=== PATIENT | female | born 1950 | race Caucasian/White ===

== ENCOUNTER 2018-08-13 17:21 | Inpatient (IN) | payer MEDICARE, OTHER ==
[2018-08-13] MEDS ORDERED: Ibuprofen 800 MG TAB ONE (17:46)
[2018-08-13 17:50] LABS: Hemoglobin 13.2 g/dL (12.0-16.0); Mean Corpuscular HGB CONC 31.4 g/dL (32.0-36.0); Mean Corpuscular Hemoglobin 30.1 pg (27.0-31.0); Mean Corpuscular Volume 95.8 fL (78.0-98.0); Mean Platelet Volume 7.7 fL (7.4-10.4); Platelet Count 267 thou/uL (130-400); Red Blood Cell (RBC) Count 4.37 mill/uL (4.20-5.40)
[2018-08-13 18:08] LABS: ALT (SGPT) 22 U/L (8-55); AST (SGOT) 22 U/L (5-34); Albumin 3.9 g/dL (3.4-4.8); Alkaline Phosphatase 88 U/L (40-150); Anion Gap 13 mmol/L (10-20); BUN (Urea Nitrogen) 17 mg/dL (9.8-20.1); Bilirubin, Total 0.8 mg/dL (0.2-1.2); Calc. Creatinine Clearance 0 mL/min (70-130); Calcium 8.7 mg/dL (7.8-10.44); Carbon Dioxide 31 mmol/L (23-31); Chloride 98 mmol/L (98-107); Estimated GFR-MDRD 38; Globulin 2.4 g/dL (2.4-3.5); Glucose 124 mg/dL (80-115); Potassium 3.8 mmol/L (3.5-5.1); Protein, Total 6.3 g/dL (6.0-8.3); Sodium 138 mmol/L (136-145)
[2018-08-13 18:09] LABS: Band 5 % (5-11); Lymphocytes 47 % (21-51); MDiff Complete? YES; Monocytes 10 % (0-10); Neutrophil 32 % (42-75); PLT Morphology Comment Appears Adequate; Reactive Lymphocytes 6 % (0-10)
[2018-08-13 18:16] LABS: Bilirubin Negative (Negative); Blood, Urine Negative (Negative); Clarity CLEAR (Clear); Glucose, Urine (Dipstick) Negative (Negative); Leukocyte Negative (Negative); Nitrite Negative (Negative); Protein, Urine (Dipstick) Negative (Neg-Trace); Specific Gravity, Urine 1.009 (1.002-1.036); pH, Urine 6.5 (5.0-9.0)
--- NOTE | 2018-08-13 18:36 | RAD ---
PORTABLE CHEST: 08/13/2018 PROVIDED CLINICAL HISTORY: Dyspnea. COMPARISON: None. FINDINGS: The cardiac silhouette is within normal limits. The left heart border is poorly defined. The right lung appears clear. No evidence for pneumothorax. IMPRESSION: Poor definition to the lateral left heart margin, which could reflect lingula infiltrate. Prominence of the epicardial fat pad could also produce this appearance. Consider correlation with a lateral v iew. POS: ALEJANDRA
[2018-08-13] MEDS ORDERED: Oseltamivir 75 MG CAP PO SCH (19:15)
[2018-08-13] MEDS ORDERED: Ondansetron PF 4 MG/2 ML Vial IVP PRN (20:25)
[2018-08-13] MEDS ORDERED: Acetaminophen 325 MG TAB PO PRN (20:25)
[2018-08-13] MEDS ORDERED: Ondansetron ODT 4 MG TAB SL PRN (20:25)
[2018-08-13 22:16] LABS: Lactic Acid 2.3 mmol/L (0.5-2.2)
[2018-08-13 23:06] VITALS: BMI 37.7
[2018-08-13] MEDS: Vancomycin HCl 1 GM in Premix Bag 1 BAG IVPB SCH (23:53)
[2018-08-13] MEDS: Sodium Chloride 0.9% 1,000 ML IV SCH (23:54)
--- NOTE | 2018-08-14 04:04 | HP ---
CHIEF COMPLAINT: Shortness of breath. HISTORY OF PRESENT ILLNESS: This patient is a 68-year-old female with a history of chronic lymphocytic leukemia and chronic renal insufficiency, who presented to the emergency department today complaining of a couple of days of dyspnea. She reports this occurred over the last 2 days. She simply felt tightness in her chest. She also spiked some fever today. She has had a cough, which has been productive of discolored dark yellowish type of sputum. She reports a history of COPD with chronic bronchitis. This is somewhat only feels worse. She is home O2 dependent. She has had no chest pains per se. She denies any palpitations. PAST MEDICAL HISTORY: Notable for CLL. She has chronic kidney disease. Her baseline is not known. She also has COPD, which is oxygen dependent on 2-3 L nasal cannula. PAST SURGICAL HISTORY: History of tonsillectomy, adenoidectomy, shoulder surgery, splenectomy, and abdominal mesh. SOCIAL HISTORY: The patient continues to smoke a pack of cigarettes per day. She is a nondrinker, nondrug user. She is . She is full code. Her daughter is her surrogate decision maker. ALLERGIES: KEFLEX, PENICILLIN, AND BUSPIRONE. CURRENT MEDICATIONS: The patient does not have a list to know them off hand. I am working to obtain a full list. PHYSICAL EXAMINATION: VITAL SIGNS: BP 138/91, pulse 82, respirations 21, temperature 99.1. On arrival, the patient's heart rate was 122 and respirations were 46. Her T-max was 102, measured today. GENERAL APPEARANCE: Age-appropriate female. She is in no acute distress. She is requiring BiPAP supplementation presently for tachypnea and dyspnea. She is awake and conversant. Pupils are slightly constricted, but reactive. NECK: Supple and symmetric. HEART: Regular without murmurs. LUNGS: Diminished throughout without significant wheezes or rales. ABDOMEN: Soft, nontender, and nondistended. Positive bowel sounds. EXTREMITIES: Warm and dry. No cyanosis, clubbing, or edema. NEUROLOGIC: The patient moves all extremities spontaneously. Cranial nerves appear intact. There are no gross deficits. PSYCHIATRIC: The patient has normal affect and behavior. LABORATORY DATA: White count 26,000 (patient believes her baseline is somewhere around 11,000), hemoglobin 13.2, platelets 267, 32 neutrophils, 5 bands, 47 lymphocytes, 6 reactive lymphocytes. Sodium 138, potassium 3.8, chloride 98, CO2 is 31, BUN 17, creatinine 1.36, glucose 124. Lactic acid initially 2.5, subsequent 2.3. AST is 22, ALT is 22, alkaline phosphatase 88. Troponin less than 0.01. BNP is 26.1. Urinalysis negative. Influenza A positive, B negative. Chest x-ray shows possible infiltrate at the left lateral margin concerning for lingular infiltrate. IMPRESSION AND PLAN: 1. Sepsis possibly viral sepsis due to influenza versus bacterial pneumonia in a patient, who has a history of splenectomy and chronic lymphocytic leukemia. The patient will be treated aggressively with vancomycin and Levaquin, and fluid hydration as tolerated. 2. Acute hypoxic respiratory failure requiring BiPAP. The patient is admitted to ICU. Get Pulmonary consult as well. Give nebulizer treatments as needed. 3. Pneumonia. The patient is certainly at risk. She has a high white count concerning for bacterial infection. Even though she is flu positive, her chest x-ray is equivocal. We will continue to cover with vancomycin and Levaquin until this can be further elucidated. 4. Chronic lymphocytic leukemia, stable. The patient is not on current treatment. 5. Chronic obstructive pulmonary disease. We will avoid steroids for now. Continue with nebulizer treatments and supplemental oxygen support as needed. 6. Chronic kidney disease, appears to be stage 3. We do not have any prior labs to confirm that the patient know she has some chronic kidney disease and this likely represents her baseline. 7. Influenza A. Tamiflu, pulmonary support. Job ID: [id number] [facility]
[2018-08-14 04:39] LABS: #Basophils 0.1 thou/uL (0.0-0.2); #Eosinphils 0.1 thou/uL (0.0-0.7); #Lymphocytes 1.9 thou/uL (1.20-3.40); #Monocytes 0.2 thou/uL (0.11-0.59); %Basophils 0.4 % (0.0-1.0); %Eosinophils 0.4 % (0.0-10.0); %Lymphocytes 13.4 % (21.0-51.0); %Monocytes 1.2 % (0.0-10.0); %Neutrophils 84.7 % (42.0-75.0); Hemoglobin 13.1 g/dL (12.0-16.0); Mean Corpuscular HGB CONC 32.3 g/dL (32.0-36.0); Mean Corpuscular Hemoglobin 31.2 pg (27.0-31.0); Mean Corpuscular Volume 96.5 fL (78.0-98.0); Mean Platelet Volume 7.8 fL (7.4-10.4); Platelet Count 245 thou/uL (130-400); Red Blood Cell (RBC) Count 4.21 mill/uL (4.20-5.40); White Blood Cell (WBC) Count 14.2 thou/uL (4.8-10.8)
[2018-08-14 04:55] LABS: Anion Gap 14 mmol/L (10-20); BUN (Urea Nitrogen) 17 mg/dL (9.8-20.1); Calc. Creatinine Clearance 60 mL/min (70-130); Calcium 8.9 mg/dL (7.8-10.44); Carbon Dioxide 30 mmol/L (23-31); Chloride 99 mmol/L (98-107); Estimated GFR-MDRD 40; Glucose 214 mg/dL (80-115); Potassium 4.1 mmol/L (3.5-5.1); Sodium 139 mmol/L (136-145)
[2018-08-14] MEDS: Heparin 5,000 UNITS/ML VIAL SC SCH ×3 (10:51→22:06)
[2018-08-14] MEDS: Oseltamivir 6 MG/ML ORAL SUSP PO SCH ×2 (10:51→22:08)
[2018-08-14] MEDS: Acetaminophen 500 MG TAB PO PRN ×2 (11:33→17:38)
--- NOTE | 2018-08-14 15:36 | CON ---
DATE OF CONSULTATION: 08/14/2018 A 50 minutes of the time, of that time, greater than 50% was spent with the patient and/or the patient's unit in the hospital. REASON FOR CONSULTATION: COPD exacerbation. HISTORY OF PRESENT ILLNESS: The patient is a pleasant 68-year-old female, who was admitted to the Hospitalist Service yesterday with increasing shortness of breath of 3 to 4 days duration. She has influenza A. She had spiked a fever up to 104. She was placed on BiPAP. She is cared for by coremaking machine operator [facility] in [place]. She wears oxygen of 2 to 3 L 24 hours daily as needed she also uses Incruse Ellipta, Symbicort, and DuoNeb as needed. She has had numerous hospital stays in the past, but related to chronic obstructive pulmonary disease. PAST MEDICAL HISTORY: 1. Chronic lymphocytic leukemia. 2. Chronic obstructive pulmonary disease. 3. Chronic kidney disease. 4. Gastroesophageal reflux. 5. Hypertension. 6. Depression. PAST SURGICAL HISTORY: 1. Tonsillectomy with adenoidectomy. 2. Shoulder surgery. 3. Splenectomy. 4. Abdominal mesh placement. SOCIAL HISTORY: The patient has not smoked since 2012. She smoked heavily before that. Does not consume alcohol. Does not use illicit drugs. ALLERGIES: KEFLEX, PENICILLIN, AND BUSPIRONE. OUTPATIENT MEDICATIONS: In addition to what is listed above. She was taking; 1. Omeprazole 20 mg daily. 2. Gabapentin 600 mg b.i.d. 3. Diltiazem extended release 120 mg b.i.d. 4. Citalopram 40 mg daily. REVIEW OF SYSTEMS: A 12-point review of systems is otherwise negative. PHYSICAL EXAMINATION: VITAL SIGNS: Temperature 97.4, pulse 73, respirations 23, O2 saturation 96% on BiPAP, and blood pressure 149/79. GENERAL: She is awake and alert. She is in respiratory distress. She is using BiPAP to overcome that. HEENT: Pupils react. Sclerae icteric. Oropharynx clear. NECK: Without adenopathy or JVD. LUNGS: She has prolonged expiratory phase with tight wheezing. CARDIAC: S1 and S2. Regular. ABDOMEN: Soft and nontender. EXTREMITIES: No edema. LABORATORY DATA: White blood cell count 14.2, hematocrit 40, and platelet count 245. Sodium 139, potassium 4.1, chloride 99, CO2 of 30, BUN 17, creatinine 1.3, and glucose 214. Flu screen was positive for type A flu. The chest x-ray showed no evidence of mass, effusion, or infiltrate. She has hyperinflation. ASSESSMENT: Chronic obstructive pulmonary disease with exacerbation. The primary trigger is influenza A. RECOMMENDATION: Continue as you are treating with antibiotics, Tamiflu, and nebulization treatments. Additionally, I would add IV steroids. BiPAP as needed. Job ID: [id number]
--- NOTE | 2018-08-14 15:38 | PDOC.PN ---
- Subjective Encounter Start Date: 08/14/18 Encounter Start Time: 13:00 Subjective: is on bipap -: no chest pain - Objective Resuscitation Status - Order Detail: 08/13/18 22:46 Resuscitation Status Routine Resuscitation Status: FULL: Full Resuscitation MAR Reviewed: Yes Vital Signs & Weight: Vital Signs (12 hours) Temp Pulse Resp BP Pulse Ox 08/14/18 12:00 98.7 F 74 24 H 146/72 H 99 08/14/18 10:47 23 H 96 08/14/18 10:39 73 23 H 96 08/14/18 07:43 23 H 97 08/14/18 07:41 83 28 H 97 08/14/18 07:28 97.4 F L 70 24 H 149/79 H 98 08/14/18 04:00 97.5 F L 80 26 H 118/61 97 Weight Weight 210 lb 3 oz I&O: 08/13/18 08/14/18 08/15/18 06:59 06:59 06:59 Intake Total 1195 Output Total 925 Balance 270 Result Diagrams: 08/14/18 04:27 08/14/18 04:27 Phys Exam - Physical Examination HEENT: PERRLA, moist MMs Neck: no JVD, supple Respiratory: no wheezing, no rales Cardiovascular: RRR, no significant murmur Gastrointestinal: soft, non-tender, positive bowel sounds Musculoskeletal: no edema, pulses present Neurological: non-focal, moves all 4 limbs Psychiatric: A&O x 3 Dx/Plan (1) Acute respiratory failure with hypoxia Code(s): J96.01 - ACUTE RESPIRATORY FAILURE WITH HYPOXIA Status: Acute (2) Influenza A Code(s): J10.1 - FLU DUE TO OTH IDENT INFLUENZA VIRUS W OTH RESP MANIFEST Status: Acute (3) Sepsis Code(s): A41.9 - SEPSIS, UNSPECIFIED ORGANISM Status: Acute Qualifiers: Sepsis type: sepsis due to unspecified organism Qualified Code(s): A41.9 - Sepsis, unspecified organism (4) PNA (pneumonia) Code(s): J18.9 - PNEUMONIA, UNSPECIFIED ORGANISM Status: Acute Qualifiers: Pneumonia type: due to unspecified organism (5) H/O chronic lymphocytic leukemia Code(s): Z85.6 - PERSONAL HISTORY OF LEUKEMIA Status: Chronic (6) CKD (chronic kidney disease) stage 3, GFR 30-59 ml/min Code(s): N18.3 - CHRONIC KIDNEY DISEASE, STAGE 3 (MODERATE) Status: Chronic - Plan is on tamiflu along with vanc and levaquin -: gentle iv hydration -: she feels comfortable on bipap now -: nebs, wbc down to 14 from 26k (her chronic level of CLL) -: mobilize as tolerated * . Review of Systems - Medications/Allergies Allergies/Adverse Reactions: Allergies Allergy/AdvReac Type Severity Reaction Status Date / Time buspirone [From BuSpar] Allergy Verified 08/13/18 22:58 cephalexin [From Keflex] Allergy Verified 08/13/18 22:58 NSAIDS (Non-Steroidal Allergy Verified 08/13/18 22:58 Anti-Inflamma Penicillins Allergy Verified 08/13/18 22:58 Medications: Current Medications Acetaminophen (Tylenol) 1,000 mg PO Q6H PRN PRN Reason: Fever>101/(Mi/Mod/Sev) Pain Last Admin: 08/14/18 11:33 Dose: 1,000 mg Albuterol/Ipratropium (Duoneb) 3 ml NEB [id number] [facility] Last Admin: 08/14/18 10:39 Dose: 3 ml Heparin Sodium (Porcine) (Heparin) 5,000 units SC TID [facility] Last Admin: 08/14/18 10:51 Dose: 5,000 units Levofloxacin 250 mg/ Device 50 mls @ 100 mls/hr IVPB Q24HR [facility] Vancomycin HCl 1 gm/ Device 200 mls @ 200 mls/hr IVPB 2359 [facility] Last Admin: 08/13/18 23:53 Dose: 200 mls Sodium Chloride (Normal Saline 0.9%) 1,000 mls @ 75 mls/hr IV .[id number] [facility] Last Admin: 08/13/18 23:54 Dose: Not Given Methylprednisolone Sodium Succinate (Solu-Medrol) 20 mg IVP Q6HR [facility] Last Admin: 08/14/18 11:33 Dose: 20 mg Oseltamivir Phosphate (Tamiflu) 30 mg PO BID [facility] Stop: 08/18/18 21:01 Last Admin: 08/14/18 10:51 Dose: 30 mg
[2018-08-14] MEDS: Sodium Chloride 0.9% 1,000 ML IV SCH ×2 (20:51→22:19)
[2018-08-15] MEDS: Vancomycin HCl 1 GM in Premix Bag 1 BAG IVPB SCH ×2 (00:11→22:58)
[2018-08-15 08:45] LABS: #Monocytes 0.9 thou/uL (0.11-0.59); #Neutrophils 12.4 thou/uL (1.40-6.50); %Basophils 0.2 % (0.0-1.0); %Eosinophils 0.2 % (0.0-10.0); %Neutrophils 80.6 % (42.0-75.0); Hemoglobin 12.8 g/dL (12.0-16.0); Mean Corpuscular HGB CONC 31.7 g/dL (32.0-36.0); Mean Corpuscular Hemoglobin 30.7 pg (27.0-31.0); Mean Corpuscular Volume 96.8 fL (78.0-98.0); Platelet Count 243 thou/uL (130-400); RBC Distribution Width 13.2 % (11.5-14.5); Red Blood Cell (RBC) Count 4.17 mill/uL (4.20-5.40); White Blood Cell (WBC) Count 15.3 thou/uL (4.8-10.8)
[2018-08-15 09:06] LABS: Anion Gap 17 mmol/L (10-20); BUN (Urea Nitrogen) 19 mg/dL (9.8-20.1); Calc. Creatinine Clearance 80 mL/min (70-130); Calcium 8.9 mg/dL (7.8-10.44); Carbon Dioxide 23 mmol/L (23-31); Chloride 102 mmol/L (98-107); Estimated GFR-MDRD 56; Glucose 145 mg/dL (80-115); Potassium 3.7 mmol/L (3.5-5.1); Sodium 138 mmol/L (136-145)
[2018-08-15] MEDS: Heparin 5,000 UNITS/ML VIAL SC SCH ×3 (09:20→20:04)
[2018-08-15] MEDS: Oseltamivir 6 MG/ML ORAL SUSP PO SCH ×2 (09:21→20:05)
--- NOTE | 2018-08-15 09:44 | PRG ---
DATE OF SERVICE: 08/15/2018 SUBJECTIVE: The patient is feeling better. She wants to try herself off the BiPAP today. OBJECTIVE: VITAL SIGNS: Temperature is 97.5, pulse 67, respirations 21, O2 saturation 95%, and blood pressure 158/95. HEENT: Unremarkable. NECK: No JVD. LUNGS: Some expiratory wheezing. CARDIAC: S1 and S2, regular. ABDOMEN: Soft. EXTREMITIES: No edema. LABORATORY DATA: White blood cell count 15.3, hematocrit 40, and platelet count 243. Sodium 138, potassium 3.7, chloride 102, CO2 of 23, BUN 19, creatinine 0.9 glucose 145. ASSESSMENT: 1. Chronic obstructive pulmonary disease with exacerbation. 2. Acute hypoxic and hypercapnic respiratory failure requiring mechanical ventilation. 3. Type A influenza. PLAN: Continue steroids, nebs, and Tamiflu. Try off BiPAP as tolerated. If she can stay off BiPAP this afternoon, then can transfer to the medical floor. Job ID: [id number]
--- NOTE | 2018-08-15 12:30 | PDOC.PN ---
- Subjective Encounter Start Date: 08/15/18 Encounter Start Time: 07:30 Subjective: on bipap, feels better -: is eating better now - Objective Resuscitation Status - Order Detail: 08/13/18 22:46 Resuscitation Status Routine Resuscitation Status: FULL: Full Resuscitation MAR Reviewed: Yes Vital Signs & Weight: Vital Signs (12 hours) Temp Pulse Resp BP Pulse Ox 08/15/18 11:08 95 08/15/18 11:04 78 18 97 08/15/18 08:00 97.5 F L 67 21 H 158/95 H 95 08/15/18 06:28 25 H 08/15/18 06:27 89 18 97 08/15/18 04:00 97.5 F L 64 20 150/83 H 96 08/15/18 02:22 20 96 08/15/18 02:21 66 20 96 Weight Weight 209 lb 8 oz I&O: 08/14/18 08/15/18 08/16/18 06:59 06:59 06:59 Intake Total 1195 2930 Output Total 925 525 Balance 270 2405 Result Diagrams: 08/15/18 08:26 08/15/18 08:26 Phys Exam - Physical Examination HEENT: PERRLA, moist MMs Neck: no JVD, supple Respiratory: no wheezing, no rales Cardiovascular: RRR, no significant murmur Gastrointestinal: soft, non-tender, positive bowel sounds Musculoskeletal: no edema, pulses present Neurological: non-focal, moves all 4 limbs Psychiatric: normal affect, A&O x 3 Dx/Plan (1) Acute respiratory failure with hypoxia Code(s): J96.01 - ACUTE RESPIRATORY FAILURE WITH HYPOXIA Status: Acute (2) Influenza A Code(s): J10.1 - FLU DUE TO OTH IDENT INFLUENZA VIRUS W OTH RESP MANIFEST Status: Acute (3) Sepsis Code(s): A41.9 - SEPSIS, UNSPECIFIED ORGANISM Status: Acute Qualifiers: Sepsis type: sepsis due to unspecified organism Qualified Code(s): A41.9 - Sepsis, unspecified organism (4) PNA (pneumonia) Code(s): J18.9 - PNEUMONIA, UNSPECIFIED ORGANISM Status: Acute Qualifiers: Pneumonia type: due to unspecified organism (5) H/O chronic lymphocytic leukemia Code(s): Z85.6 - PERSONAL HISTORY OF LEUKEMIA Status: Chronic (6) CKD (chronic kidney disease) stage 3, GFR 30-59 ml/min Code(s): N18.3 - CHRONIC KIDNEY DISEASE, STAGE 3 (MODERATE) Status: Chronic - Plan is on vanc, levaquin, tamiflu, nebs -: steroids -: wean and dc bipap if she tolerates -: to amb in room today -: wbc down to 15 from 26k * . Review of Systems - Medications/Allergies Allergies/Adverse Reactions: Allergies Allergy/AdvReac Type Severity Reaction Status Date / Time buspirone [From BuSpar] Allergy Verified 08/13/18 22:58 cephalexin [From Keflex] Allergy Verified 08/13/18 22:58 NSAIDS (Non-Steroidal Allergy Verified 08/13/18 22:58 Anti-Inflamma Penicillins Allergy Verified 08/13/18 22:58 Medications: Current Medications Acetaminophen (Tylenol) 1,000 mg PO Q6H PRN PRN Reason: Fever>101/(Mi/Mod/Sev) Pain Last Admin: 08/14/18 17:38 Dose: 1,000 mg Albuterol/Ipratropium (Duoneb) 3 ml NEB [id number] [facility] Last Admin: 08/15/18 11:04 Dose: 3 ml Heparin Sodium (Porcine) (Heparin) 5,000 units SC TID [facility] Last Admin: 08/15/18 09:20 Dose: 5,000 units Levofloxacin 250 mg/ Device 50 mls @ 100 mls/hr IVPB Q24HR [facility] Last Admin: 08/14/18 17:38 Dose: 50 mls Vancomycin HCl 1 gm/ Device 200 mls @ 200 mls/hr IVPB 2359 [facility] Last Admin: 08/15/18 00:11 Dose: 200 mls Sodium Chloride (Normal Saline 0.9%) 1,000 mls @ 75 mls/hr IV .[id number] [facility] Last Admin: 08/14/18 22:19 Dose: 1,000 mls Methylprednisolone Sodium Succinate (Solu-Medrol) 20 mg IVP Q6HR [facility] Last Admin: 08/15/18 05:53 Dose: 20 mg Miscellaneous Medication (Pharmacy To Dose) 0 each IVPB PRN PRN PRN Reason: PHARMACY TO DOSE Oseltamivir Phosphate (Tamiflu) 30 mg PO BID [facility] Stop: 08/18/18 21:01 Last Admin: 08/15/18 09:21 Dose: 30 mg
[2018-08-15] MEDS: Acetaminophen 500 MG TAB PO PRN (13:05)
[2018-08-15] MEDS: Sodium Chloride 0.9% 1,000 ML IV SCH (15:30)
[2018-08-15] MEDS ORDERED: hydrALAZINE 20 MG/ML VIAL SLOW IVP PRN (20:36)
[2018-08-15 23:36] LABS: Vancomycin, Trough 6.8 ug/mL
[2018-08-16] MEDS: Vancomycin HCl 1 GM in Premix Bag 1 BAG IVPB SCH ×2 (00:09→11:47)
[2018-08-16] MEDS: Sodium Chloride 0.9% 1,000 ML IV SCH (00:10)
[2018-08-16 04:44] LABS: #Basophils 0.1 thou/uL (0.0-0.2); #Monocytes 0.8 thou/uL (0.11-0.59); #Neutrophils 10.8 thou/uL (1.40-6.50); %Basophils 0.7 % (0.0-1.0); %Eosinophils 0.2 % (0.0-10.0); %Lymphocytes 7.6 % (21.0-51.0); %Monocytes 6.1 % (0.0-10.0); %Neutrophils 85.4 % (42.0-75.0); Hemoglobin 12.8 g/dL (12.0-16.0); Mean Corpuscular HGB CONC 31.1 g/dL (32.0-36.0); Mean Corpuscular Hemoglobin 30.3 pg (27.0-31.0); Mean Corpuscular Volume 97.4 fL (78.0-98.0); Mean Platelet Volume 8.1 fL (7.4-10.4); Platelet Count 246 thou/uL (130-400); RBC Distribution Width 13.3 % (11.5-14.5); Red Blood Cell (RBC) Count 4.23 mill/uL (4.20-5.40); White Blood Cell (WBC) Count 12.6 thou/uL (4.8-10.8)
[2018-08-16] MEDS: Oseltamivir 6 MG/ML ORAL SUSP PO SCH (09:22)
[2018-08-16] MEDS: Heparin 5,000 UNITS/ML VIAL SC SCH (09:22)
--- NOTE | 2018-08-16 12:08 | PRG ---
DATE OF SERVICE: 08/16/2018 SUBJECTIVE: She is feeling better and wants to go home. OBJECTIVE: VITAL SIGNS: On exam, temperature 97.4, pulse 88, respirations 20, O2 saturation 97% on 2 L. HEENT: Unremarkable. NECK: No adenopathy, JVD, or bruits. LUNGS: Clear without wheezing or rhonchi. CARDIAC: S1, S2. Regular. ABDOMEN: Soft. EXTREMITIES: No edema. LABORATORY DATA: White blood cell count 12.6, hematocrit 41.2, and platelet count 246. Sodium 138, potassium 4.7, BUN 19, creatinine 0.9, glucose 145. ASSESSMENT: 1. Influenza A. 2. Status post acute hypoxic and hypercapnic respiratory failure. 3. Underlying chronic obstructive pulmonary disease with exacerbation. PLAN: She is stable to go home on a steroid taper, her nebulization treatments, and finish up the Tamiflu. She has oxygen at home and is equipped to monitor O2 sats. Job ID: [id number]
[2018-08-16 12:20] VITALS: BP 176/91; TEMP 98.9
--- NOTE | 2018-08-16 12:35 | PDOC.PN ---
- Subjective Encounter Start Date: 08/16/18 Encounter Start Time: 07:00 Subjective: sob is better, wants to go home -: says her 2 kids are resp therapists and she has oxygen as well - Objective Resuscitation Status - Order Detail: 08/13/18 22:46 Resuscitation Status Routine Resuscitation Status: FULL: Full Resuscitation MAR Reviewed: Yes Vital Signs & Weight: Vital Signs (12 hours) Temp Pulse Resp BP Pulse Ox 08/16/18 12:00 98.9 F 104 H 18 176/91 H 96 08/16/18 10:51 88 20 08/16/18 08:25 97 08/16/18 08:22 92 22 H 97 08/16/18 07:43 94 L 08/16/18 07:22 97.4 F L 89 16 177/107 H 96 08/16/18 04:00 97.8 F 89 20 159/63 H 94 L 08/16/18 02:28 81 20 94 L Weight Weight 209 lb I&O: 08/15/18 08/16/18 08/17/18 06:59 06:59 06:59 Intake Total 2930 2225 Output Total 525 850 Balance 2405 1375 Result Diagrams: 08/16/18 04:20 08/15/18 08:26 Phys Exam - Physical Examination HEENT: PERRLA, moist MMs Neck: no JVD, supple Respiratory: no wheezing, no rales rhonchi+ Cardiovascular: RRR, no significant murmur Gastrointestinal: soft, non-tender, positive bowel sounds Musculoskeletal: no edema, pulses present Neurological: non-focal, moves all 4 limbs Psychiatric: normal affect, A&O x 3 Dx/Plan (1) Acute respiratory failure with hypoxia Code(s): J96.01 - ACUTE RESPIRATORY FAILURE WITH HYPOXIA Status: Resolved (2) Influenza A Code(s): J10.1 - FLU DUE TO OTH IDENT INFLUENZA VIRUS W OTH RESP MANIFEST Status: Acute (3) Sepsis Code(s): A41.9 - SEPSIS, UNSPECIFIED ORGANISM Status: Acute Qualifiers: Sepsis type: sepsis due to unspecified organism Qualified Code(s): A41.9 - Sepsis, unspecified organism (4) PNA (pneumonia) Code(s): J18.9 - PNEUMONIA, UNSPECIFIED ORGANISM Status: Acute Qualifiers: Pneumonia type: due to unspecified organism (5) H/O chronic lymphocytic leukemia Code(s): Z85.6 - PERSONAL HISTORY OF LEUKEMIA Status: Chronic (6) CKD (chronic kidney disease) stage 3, GFR 30-59 ml/min Code(s): N18.3 - CHRONIC KIDNEY DISEASE, STAGE 3 (MODERATE) Status: Chronic - Plan hemostable -: may dc home as she wants to go home -: steroid taper, levaquin and tamiflu * .
--- NOTE | 2018-08-17 15:24 | EKG ---
Test Reason : SEPSIS, SOB Blood Pressure : / mmHG Vent. Rate : 120 BPM Atrial Rate : 120 BPM P-R Int : 120 ms QRS Dur : 078 ms QT Int : 368 ms P-R-T Axes : 073 058 066 degrees QTc Int : 520 ms Sinus tachycardia Nonspecific ST abnormality Prolonged QT Abnormal ECG Confirmed by GREGG LEIGH ([id number]), newspaper copy editor LÁZARO TSEVE ([id number]) on 08/17/2018 3:23:30 PM Referred By: Confirmed By:GREGG LEIGH
== END 2018-08-16 15:40 | disposition home or self-care (01) | DRG 871 ==
LOC: ERS 17:21 → IMCU/EMU 18:45
PROVIDERS: ADMIT Emergency Medicine; ATTEND Emergency Medicine
PROC: 5A09457 Assistance with Respiratory Ventilation, 24-96 Consecutive Hours, Continuous Positive Airway Pressure (ICD-10-PCS; principal; 2018-08-13)
DX: A41.89 Other specified sepsis (principal); J10.00 Influenza due to other identified influenza virus with unspecified type of pneumonia; J96.01 Acute respiratory failure with hypoxia; J96.02 Acute respiratory failure with hypercapnia; C91.10 Chronic lymphocytic leukemia of B-cell type not having achieved remission; J44.0 Chronic obstructive pulmonary disease with (acute) lower respiratory infection; J44.1 Chronic obstructive pulmonary disease with (acute) exacerbation; N18.3 Chronic kidney disease, stage 3 (moderate); K21.9 Gastro-esophageal reflux disease without esophagitis; F32.9 Major depressive disorder, single episode, unspecified; Z99.81 Dependence on supplemental oxygen; Z90.89 Acquired absence of other organs; Z90.49 Acquired absence of other specified parts of digestive tract; Z98.890 Other specified postprocedural states; Z88.1 Allergy status to other antibiotic agents; Z87.891 Personal history of nicotine dependence; Z88.8 Allergy status to other drugs, medicaments and biological substances; Z88.0 Allergy status to penicillin
CPT/HCPCS: 36415; 51701; 71045; 80048; 80053; 80202; 81003; 83605; 83880; 84484; 85025; 87040; 87086; 87804; 93005; 94640; 94660; 94760; 96365; 96366; 96368; A4353; J0360; J1644; J1956; J2920; J3370; J7620